=== PATIENT | female | born 1970 | race African-American/Black ===

== ENCOUNTER 2018-10-23 22:37 | Emergency (ER) | payer SELFPAY ==
[~2018-10-23] VITALS: Ht 165.1 cm; Wt 97.3 kg
[~2018-10-23 22:37] MED LIST: DIOVAN HCT 12.51 TA2 PO; JANUMET 1000 MG1 TA1 PO; MULTIVITAMIN1 TA1 PO
[2018-10-23 22:55] VITALS: BP 169/94; TEMP 98.4
[2018-10-24] MEDS ORDERED: NORCO 325 MG-51 TAB PO (02:10)
[2018-10-24] MEDS ORDERED: MOBIC 7.5MG7.5 MG PO (02:10)
[2018-10-24 02:30] VITALS: PULSE 80
== END 2018-10-24 02:30 | disposition home or self-care (01) ==
LOC: COL.ER 22:37
DX: M25.511 Pain in right shoulder (principal); E78.5 Hyperlipidemia, unspecified; I10 Essential (primary) hypertension; Z79.84 Long term (current) use of oral hypoglycemic drugs

== ENCOUNTER 2018-11-18 21:16 | Emergency (ER) | payer SELFPAY ==
[~2018-11-18] VITALS: Ht 165.1 cm; Wt 98.2 kg
[~2018-11-18 21:16] MED LIST changes: +MOBIC 7.5MG7.5 MG PO; +NORCO 325 MG-51 TAB PO
[2018-11-18 21:27] VITALS: TEMP 96.8
[2018-11-19 00:08] LABS: BASO # 0.1 (0.0-0.2); BASO % 0.5 % (0.0-2.0); EOS # 0.1 (0.0-0.7); EOS % 0.7 % (0-4.0); GRAN # 6.9 (1.4-6.5); HEMATOCRIT 40.5 % (37.0-47.0); HEMOGLOBIN 12.5 g/dl (12.5-16.0); LYMPH # 4.7 (1.2-3.4); LYMPH % 36.8 % (20.0-51.0); MEAN CELL VOLUME 70 fl (80.0-100.0); MEAN CORPUSCULAR HEMOGLOBIN 22 pg (27.0-31.0); MEAN CORPUSCULAR HGB CONC 31 g/dl (33.0-37.0); MEAN PLATELET VOLUME 10.8 fl (7.4-10.4); MONO % 7.7 % (1.7-9.3); PLATELET COUNT 289 K/mm3 (130-400); RED BLOOD COUNT 5.79 M/mm3 (4.10-5.30); REDCELL DISTRIBUTION WIDTH-CV 20.3 % (11.5-14.5)
[2018-11-19 00:20] LABS: ALBUMIN 4.1 gm/dL (3.5-5.0); BILIRUBIN,TOTAL 0.6 mg/dL (0.0-1.0); CALCIUM 8.8 mg/dL (8.4-10.2); CREATININE, serum 0.77 (0.52-1.25); POTASSIUM 3.8 mmol/L (3.4-5.0); TOTAL PROTEIN 7.8 gm/dL (6.4-8.2)
[2018-11-19 01:08] LABS: ERYTHROCYTE SEDIMENTATION RATE 7 mm/hr (0-20)
[2018-11-19] MEDS ORDERED: NORCO 325 MG-51 TAB PO (01:34)
[2018-11-19 02:13] VITALS: BP 161/87; PULSE 63
== END 2018-11-19 01:44 | disposition home or self-care (01) ==
LOC: COL.ER 21:16
PROVIDERS: Emergency Medicine
DX: M25.522 Pain in left elbow (principal); I25.10 Atherosclerotic heart disease of native coronary artery without angina pectoris; E66.9 Obesity, unspecified; E11.9 Type 2 diabetes mellitus without complications; I10 Essential (primary) hypertension; Z79.84 Long term (current) use of oral hypoglycemic drugs; Z79.82 Long term (current) use of aspirin; Z88.9 Allergy status to unspecified drugs, medicaments and biological substances
CPT/HCPCS: J1885

== ENCOUNTER 2019-03-14 19:18 | Emergency (ER) | payer SELFPAY ==
[~2019-03-14] VITALS: Ht 165.1 cm; Wt 97.7 kg
[2019-03-14 19:47] VITALS: TEMP 97
[2019-03-14 20:17] LABS: STREP SCREEN NEGATIVE
[2019-03-14 21:10] VITALS: BP 197/98; PULSE 73
== END 2019-03-14 23:30 | disposition home or self-care (01) ==
LOC: COL.ER 19:18
PROVIDERS: Emergency Medicine
DX: J02.8 Acute pharyngitis due to other specified organisms (principal); E11.9 Type 2 diabetes mellitus without complications; Z79.84 Long term (current) use of oral hypoglycemic drugs

== ENCOUNTER 2019-04-26 18:42 | Emergency (ER) | payer SELFPAY ==
[~2019-04-26] VITALS: Ht 165.1 cm; Wt 100.0 kg
[2019-04-26 18:45] VITALS: TEMP 98.6
[2019-04-26] MEDS ORDERED: INVOKAMET3 PO (18:47)
[2019-04-26] MEDS ORDERED: NORVASC 10MG10 MG PO ×2 (18:48→20:58)
[2019-04-26] MEDS ORDERED: PRINZIDE 12.5 M1 TAB PO ×2 (18:49→20:58)
[2019-04-26 19:27] LABS: BASO # 0.1 (0.0-0.2); BASO % 0.5 % (0.0-2.0); EOS # 0.1 (0.0-0.7); EOS % 0.6 % (0-4.0); GRAN # 5.8 (1.4-6.5); GRAN % 56.5 % (42.2-75.2); HEMATOCRIT 44.2 % (37.0-47.0); HEMOGLOBIN 13.7 g/dl (12.5-16.0); LYMPH # 3.6 (1.2-3.4); LYMPH % 35.6 % (20.0-51.0); MEAN CELL VOLUME 74 fl (80.0-100.0); MEAN CORPUSCULAR HEMOGLOBIN 23 pg (27.0-31.0); MEAN CORPUSCULAR HGB CONC 31 g/dl (33.0-37.0); MONO # 0.7 (0.1-0.6); MONO % 6.6 % (1.7-9.3); PLATELET COUNT 221 K/mm3 (130-400); REDCELL DISTRIBUTION WIDTH-CV 17.7 % (11.5-14.5)
[2019-04-26 19:32] LABS: ACETONE,SERUM NEGATIVE
[2019-04-26 19:33] LABS: ALANINE AMINOTRANSFERASE 70 U/L (4-34); ALBUMIN 4.5 gm/dL (3.5-5.0); ALKALINE PHOSPHATASE 120 U/L (50-136); ANION GAP 10 mmol/L (7-16); AST,SGOT 44 U/L (15-37); BILIRUBIN,TOTAL 0.7 mg/dL (0.0-1.0); BLOOD UREA NITROGEN 13 mg/dL (7-17); CALCIUM 9.4 mg/dL (8.4-10.2); CARBON DIOXIDE 28 mmol/L (22-30); CHLORIDE 98 mmol/L (98-107); CREATININE, serum 0.57 (0.52-1.25); GLUCOSE 330 mg/dL (74-106); POTASSIUM 3.7 mmol/L (3.4-5.0); SODIUM 137 mmol/L (137-145); TOTAL PROTEIN 8.2 gm/dL (6.4-8.2)
[2019-04-26 19:44] LABS: RED BLOOD COUNT 5.96 M/mm3 (4.10-5.30)
[2019-04-26 19:45] LABS: TROPONIN-I < 0.012 ng/mL (0.000-0.035)
[2019-04-26] MEDS ORDERED: GLUCOPHAGE1000 MG PO (20:58)
[2019-04-26] MEDS ORDERED: GLUCOTROL 5M5 MG/TAB PO (20:58)
[2019-04-26 21:15] VITALS: BP 166/81; PULSE 86
== END 2019-04-26 21:15 | disposition home or self-care (01) ==
LOC: COL.ER 18:42
PROVIDERS: Emergency Medicine
DX: E11.65 Type 2 diabetes mellitus with hyperglycemia (principal); I10 Essential (primary) hypertension; E66.9 Obesity, unspecified; Z68.36 Body mass index [BMI] 36.0-36.9, adult
CPT/HCPCS: J7030

== ENCOUNTER 2019-11-15 16:20 | Emergency (ER) | payer SELFPAY ==
[~2019-11-15] VITALS: Ht 165.1 cm; Wt 94.1 kg
[~2019-11-15 16:20] MED LIST changes: +GLUCOPHAGE1000 MG PO; +GLUCOTROL 5M5 MG/TAB PO; +INVOKAMET3 PO; +NORVASC 10MG10 MG PO; +PRINZIDE 12.5 M1 TAB PO
[2019-11-15 16:35] VITALS: BP 180/97; TEMP 99.9
[2019-11-15 17:54] LABS: HEMATOCRIT 40.2 % (37.0-47.0); HEMOGLOBIN 12.8 g/dl (12.5-16.0); MEAN CELL VOLUME 75 fl (80.0-100.0); MEAN CORPUSCULAR HEMOGLOBIN 24 pg (27.0-31.0); MEAN CORPUSCULAR HGB CONC 32 g/dl (33.0-37.0); MEAN PLATELET VOLUME 11.7 fl (7.4-10.4); PLATELET COUNT 162 K/mm3 (130-400); RED BLOOD COUNT 5.39 M/mm3 (4.10-5.30); REDCELL DISTRIBUTION WIDTH-CV 14.9 % (11.5-14.5)
[2019-11-15 18:03] LABS: ALBUMIN 4.1 gm/dL (3.5-5.0); BILIRUBIN,TOTAL 0.6 mg/dL (0.0-1.0); CALCIUM 8.4 mg/dL (8.4-10.2); CREATININE, serum 0.59 (0.52-1.25); POTASSIUM 3.1 mmol/L (3.4-5.0); TOTAL PROTEIN 7.7 gm/dL (6.4-8.2)
[2019-11-15] MEDS ORDERED: ZITHROMAX 250M250 MG PO (18:08)
[2019-11-15] MEDS ORDERED: NEXIUM 20MG20 MG PO (18:08)
[2019-11-15 18:19] LABS: BAND 1 % (0-10); LYMPHOCYTE 29 % (20.0-51.0); NEUTROPHILS 60 % (42.0-75.2); PLATELET ESTIMATE NORMAL (NORMAL)
[2019-11-15 18:20] LABS: ANISOCYTOSIS 1+
[2019-11-15 18:37] VITALS: PULSE 66
== END 2019-11-15 18:37 | disposition home or self-care (01) ==
LOC: COL.ER 16:20
PROVIDERS: Emergency Medicine
DX: U07.1 COVID-19 (principal); R10.13 Epigastric pain; Z32.02 Encounter for pregnancy test, result negative; Z79.84 Long term (current) use of oral hypoglycemic drugs

== ENCOUNTER 2021-10-01 18:38 | Emergency (ER) | payer SELFPAY ==
[~2021-10-01] VITALS: Ht 165.1 cm; Wt 92.3 kg
[~2021-10-01 18:38] MED LIST changes: +FLEXERIL 1010 MG/TAB PO; +NEXIUM 20MG20 MG PO; +ZITHROMAX 250M250 MG PO
[2021-10-01 18:46] VITALS: TEMP 98.1
[2021-10-01 19:26] LABS: BASO # 0.1 K/mm3 (0.0-0.2); BASO % 0.6 % (0.0-2.0); EOS # 0.1 K/mm3 (0.0-0.7); EOS % 0.6 % (0.0-4.0); GRAN # 5.1 K/mm3 (1.4-6.5); GRAN % 53.1 % (42.2-75.2); HEMATOCRIT 40.2 % (37.0-47.0); HEMOGLOBIN 13.1 g/dl (12.5-16.0); LYMPH # 3.6 K/mm3 (1.2-3.4); LYMPH % 37.6 % (20.0-51.0); MEAN CELL VOLUME 75 fl (80.0-100.0); MEAN CORPUSCULAR HEMOGLOBIN 24 pg (27-31); MEAN CORPUSCULAR HGB CONC 33 g/dl (33.0-37.0); MEAN PLATELET VOLUME 11.6 fl (7.4-10.4); MONO # 0.8 K/mm3 (0.1-0.6); MONO % 7.9 % (1.7-9.3); PLATELET COUNT 225 K/mm3 (130-400); RED BLOOD COUNT 5.36 M/mm3 (4.10-5.30); REDCELL DISTRIBUTION WIDTH-CV 15.4 % (11.5-14.5)
[2021-10-01 19:48] LABS: ALANINE AMINOTRANSFERASE 25 U/L (0-55); ALBUMIN 3.5 gm/dL (3.5-5.0); ALKALINE PHOSPHATASE 72 U/L (40-150); ANION GAP 14 mmol/L (7-16); AST,SGOT 12 U/L (5-34); BILIRUBIN,TOTAL 0.9 mg/dL (0.2-1.2); BLOOD UREA NITROGEN 9 mg/dL (10-20); CALCIUM 9.3 mg/dL (8.4-10.2); CARBON DIOXIDE 23 mmol/L (22-29); CHLORIDE 101 mmol/L (98-107); GLUCOSE 389 mg/dL (70-99); POTASSIUM 3.5 mmol/L (3.5-4.5); SODIUM 138 mmol/L (136-145); TOTAL PROTEIN 7.5 gm/dL (6.2-8.1)
[2021-10-01 19:53] LABS: TROPONIN-I < 0.010 ng/mL (0.00-0.033)
[2021-10-01] MEDS ORDERED: NORCO 325 MG-51 TAB PO (20:33)
[2021-10-01 20:54] VITALS: BP 162/92; PULSE 82
== END 2021-10-01 20:54 | disposition home or self-care (01) ==
LOC: COL.ER 18:38
PROVIDERS: Personal Emergency Response Attendant
DX: R07.89 Other chest pain (principal)
CPT/HCPCS: J2270; J2405

== ENCOUNTER 2021-12-20 17:52 | Emergency (ER) | payer SELFPAY ==
[~2021-12-20] VITALS: Ht 162.6 cm; Wt 92.3 kg
[2021-12-20 18:11] VITALS: TEMP 97.9
[2021-12-20] MEDS ORDERED: AMOXICILLIN875 MG PO (18:38)
[2021-12-20] MEDS ORDERED: PREDNISONE20 MG PO (18:38)
[2021-12-20 19:01] VITALS: BP 212/83; PULSE 76
== END 2021-12-20 19:01 | disposition home or self-care (01) ==
LOC: COL.ER 17:52
DX: J02.9 Acute pharyngitis, unspecified (principal); H65.02 Acute serous otitis media, left ear; I10 Essential (primary) hypertension; E11.9 Type 2 diabetes mellitus without complications